=== PATIENT | female | born 1955 | race Caucasian/White ===

== ENCOUNTER → 2016-05-12 07:46 | Day surgery (SDC) | payer BC ==
[~2016-05-12 07:46] MED LIST: Acetaminophen IV 1GM/100ML * 100 ML IVPB ONE; Acetaminophen IV 1GM/100ML * 100 ML ONE; Buffered Lidocaine 1% SYRIN* 3 ML/SYR SYRINGE INTRADERM ONE; Bupivacaine 0.25% SDV* 30 ML ONE; Bupivacaine 0.5% W/EPI SDV* 30 ML VIAL ONE; Dexamethasone IV* 4 MG/ML 1 ML (4 MG) ONE; DiMENhydriNATE IV* 50 MG/ML VIAL IV PUSH PRN; DiMENhydriNATE IV* 50 MG/ML VIAL ONE; Famotidine IV* 10 MG/ML 2 ML (20 mg) IV ONE; Famotidine IV* 10 MG/ML 2 ML (20 mg) ONE; HYDROmorphone* 1 MG/ML 1 ML SYR IV PRN; HYDROmorphone* 1 MG/ML 1 ML SYR ONE; Ketorolac INJ* 30 MG/ML 1 ML VIAL ONE; Lidocaine 2% PF* 5 ML VIAL ONE; Midazolam* 1 MG/ML 5 ML VIAL (5 MG) ONE; Ondansetron INJ* 2 MG/ML VIAL ONE; Propofol* 10 MG/ML 20 ML BTL IV PUSH ONE; Rocuronium* 10 MG/ML VIAL ONE; Succinylcholine* 20 MG/ML 10 ML VIAL ONE; fentaNYL* 50 MCG/ML 2 ML VIAL (100 MCG VIAL) ONE; oxyCODONE TAB* 5 MG TAB PO PRN
[2016-05-12 12:15] VITALS: BP 120/63
--- NOTE | 2016-05-13 00:52 | OP ---
DATE OF PROCEDURE: 05/12/16 - [facility] DATE OF : 51 SURGEON: Olesya Schmidt MD SETUP TECHNICIAN: Madhavi Baron MD ANESTHESIOLOGIST: Pamela Delvalle MD ANESTHESIA: General, endotracheal. PRE-OP DIAGNOSIS: Large right ovarian cyst, persistent and increasing in size. POST-OP DIAGNOSIS: Large right ovarian cyst, persistent and increasing in size. OPERATIVE PROCEDURE: Laparoscopic bilateral salpingo-oophorectomy. EBL: Minimal. FLUIDS: Crystalloid. DRAINS: Hewitt catheter during the procedure drained 600 cc of clear urine. COMPLICATIONS: None. FINDINGS: A very large right ovarian cyst, small left ovarian cyst, normal- appearing tubes and uterus. DESCRIPTION OF PROCEDURE: After informed consent was signed, the patient was taken to the operating room where she was given general anesthesia that was found to be adequate. A Hewitt catheter was placed into the patient's bladder. She was prepped and draped in the dorsal lithotomy position in [facility]. First a speculum was placed into the vagina to expose the cervix and a [employer] manipulator was placed into the cervix. Next, the speculum was removed, gloves were changed, and the attention was turned to the abdomen. Then, the infraumbilical fold was grasped with two Allis clamps and injected with 0.5% Marcaine with epinephrine. A 10-mm incision was then made with a scalpel in a vertical fashion. This was extended down to the underlying layer of fascia. A Visiport was used to bluntly dissect through the fascia but was not long enough to go through the peritoneum. Therefore, the peritoneum was grasped , clamped, tented up, and incised with Metzenbaum scissors. The camera was then inserted and entrance to the abdominal cavity was confirmed. Insufflation was started. On inspection, the previously mentioned findings were noted. First attention was turned to the large right ovary. The infundibulopelvic ligament was grasped with a LigaSure device, clamped, cauterized, and cut. This was then continued on to the mesosalpinx underneath the tube and then across the tube and the utero-ovarian ligament. Good hemostasis was noted. Next, attention was turned to the patient's left tube and ovary. The infundibulopelvic ligament was also clamped with LigaSure device, cauterized, and cut, and this procedure was continued on through the mesosalpinx and then across the proximal portion of the tube and the utero-ovarian ligament. The left ovary and tube were placed in EndoCatch bag and removed. However, the right ovary was too large to fit in an EndoCatch bag. Therefore, a needle was inserted through the lateral port and directly into the cyst to drain fluid from the cyst. About, 20 to 25 cc of clear fluid was drained from the cyst. Then, another EndoCatch bag was placed through the port and the cyst wall and the remaining fluid was placed into the bag as well as the right tube. This was brought up to the umbilical incision and further fluid was drained until the specimen could be removed through the umbilical port. Attempt was made to minimize spillage of fluid into the abdominal cavity. After all the specimens were removed, the abdomen was thoroughly irrigated and suctioned. Good hemostasis was noted at all the pedicles. Next, the umbilical port was removed under direct visualization. The lateral ports were also removed. The umbilical fascial incision was closed with 0 Vicryl in a running fashion and the skin was closed with 4-0 Vicryl in a running subcuticular fashion. Mastisol and Steri- Strips were placed. The patient was cleaned, placed back into the supine position, awakened from anesthesia, and moved to the stretcher, and taken to the recovery room in stable condition. [id number]/[facility] #: [id number] MARIA ESTHER
== END | disposition home or self-care (01) ==
LOC: OR 07:46
PROVIDERS: ATTEND Obstetrics & Gynecology
DX: D27.1 Benign neoplasm of left ovary (principal); D27.0 Benign neoplasm of right ovary; G47.33 Obstructive sleep apnea (adult) (pediatric)
CPT/HCPCS: 88305; J0330; J1100; J1170; J1240; J1885; J2250; J2405; J2704; J3010